=== PATIENT | male | born 1955 | race Asian ===

== ENCOUNTER 2017-03-13 07:33 | Day surgery (SDC) | payer MEDICAID ==
[~2017-03-13] VITALS: Ht 175.3 cm; Wt 73.5 kg
== END 2017-03-13 11:05 | disposition home or self-care (01) ==
LOC: MDS 07:33 → MMU 07:34 → MDS 11:05
PROVIDERS: ATTEND Internal Medicine Gastroenterology
DX: K62.89 Other specified diseases of anus and rectum (principal); Z98.890 Other specified postprocedural states; Z72.89 Other problems related to lifestyle; Z90.49 Acquired absence of other specified parts of digestive tract